=== PATIENT | male | born 1935 | race Caucasian/White ===

== ENCOUNTER 2021-08-24 00:31 | Observation (INO) ==
[2021-08-24] MEDS ORDERED: Ondansetron ODT 4 MG TAB.RAPDIS SL PRN (10:02)
[2021-08-24] MEDS ORDERED: Melatonin 3 MG TABLET PO PRN (10:02)
[2021-08-24] MEDS ORDERED: Naloxone 0.4 MG/ML INJ IVP PRN (10:02)
[2021-08-24] MEDS ORDERED: Acetaminophen 325 MG TABLET PO PRN (10:02)
[2021-08-24] MEDS ORDERED: Nitroglycerin 0.4 MG TAB.SUBL SL PRN (13:53)
[2021-08-24] MEDS ORDERED: *HR* Labetalol 20 MG/4 ML SYRINGE IVP PRN (13:55)
[2021-08-24] MEDS ORDERED: Perflutren Lipid Microsphere 1.3 ML in 0.9 % Sodium Chloride 8.7 ML IVP PRN (14:12)
[2021-08-24 17:09] LABS: Hematocrit 38.9 % (37.5-50.1); Hemoglobin 13.6 g/dL (12.9-16.9); Immature Granulocytes % 2.7 % (0-4); Lymphocytes # 0.3 K/mcL (0.6-4.6); Lymphocytes % 8.4 %; Mean Corpuscular Volume 88.6 fL (83.0-100.0); Mean Platelet Volume 9.2 fL (9.4-12.4); Monocytes # 0.2 K/mcL (0.0-1.3); Monocytes % 6.7 %; Neutrophils # 2.5 K/mcL (1.6-8.9); Platelet Count 159 K/mcL (140-400); Red Blood Count 4.39 M/mcL (4.19-5.50); Red Cell Distribution Width 11.9 % (11.5-14.5); Segmented Neutrophils % 82.2 %
[2021-08-24 17:24] LABS: BUN/Creatinine Ratio 26 (6-26); Blood Urea Nitrogen 25 mg/dL (8-23); C-Reactive Protein 77 mg/L (Less than 10); Calcium 8.8 mg/dL (8.6-10.3); Carbon Dioxide 24 mEq/L (23-29); Chloride 94 mEq/L (98-107); Glucose 212 mg/dL (70-105); Osmolality,Calculated 279 (280-300); Potassium 3.7 mEq/L (3.5-5.1); Sodium 129 mEq/L (136-145); Troponin I 0.03 ng/mL (< 0.04); eGFR For African Americans > 60 (> 60); eGFR For Non-African Americans > 60 (> 60)
[2021-08-24] MEDS ORDERED: *HR* Enoxaparin 60 MG/0.6 ML SYRINGE SQ SCH (18:00)
[2021-08-24] MEDS ORDERED: Enoxaparin Weight Dosing SQ SCH (18:00)
[2021-08-24] MEDS ORDERED: Aspirin Enteric Coated 81 MG Tablet PO SCH (21:00)
[2021-08-25] MEDS ORDERED: *HR* Enoxaparin 40 MG/0.4 ML SYRINGE SQ SCH (06:00)
[2021-08-25 06:04] LABS: BUN/Creatinine Ratio 31 (6-26); Blood Urea Nitrogen 27 mg/dL (8-23); Calcium 8.4 mg/dL (8.6-10.3); Carbon Dioxide 26 mEq/L (23-29); Chloride 94 mEq/L (98-107); Glucose 144 mg/dL (70-105); Osmolality,Calculated 272 (280-300); Potassium 3.9 mEq/L (3.5-5.1); Sodium 127 mEq/L (136-145); eGFR For African Americans > 60 (> 60); eGFR For Non-African Americans > 60 (> 60)
[2021-08-25 06:43] LABS: Basophils % 0.2 %; Hematocrit 36.1 % (37.5-50.1); Hemoglobin 12.5 g/dL (12.9-16.9); Immature Granulocytes % 1.2 % (0-4); Immature Platelets 2.9 % (1.1-6.1); Lymphocytes % 5.7 %; Mean Corpuscular HGB Conc 34.6 g/dL (31.6-35.5); Mean Corpuscular Hemoglobin 30.3 pg (28.0-33.3); Mean Corpuscular Volume 87.4 fL (83.0-100.0); Mean Platelet Volume 9.5 fL (9.4-12.4); Monocytes % 6.3 %; Platelet Count 154 K/mcL (140-400); Red Blood Count 4.13 M/mcL (4.19-5.50); Red Cell Distribution Width 11.9 % (11.5-14.5); Segmented Neutrophils % 86.6 %; White Blood Count 4.9 K/mcL (4.3-11.1)
[2021-08-25 06:44] LABS: Lymphocytes # 0.3 K/mcL (0.6-4.6); Monocytes # 0.3 K/mcL (0.0-1.3)
[2021-08-25 06:45] LABS: Neutrophils # 4.2 K/mcL (1.6-8.9)
[2021-08-25 07:56] VITALS: BP 147/70; PULSE 81; TEMP 98.2
[2021-08-25] MEDS: Ipratropium 1 PUFF INHALER IH SCH ×2 (08:32→11:21)
[2021-08-25] MEDS ORDERED: Zinc Sulfate 220 MG CAPSULE PO SCH (09:00)
[2021-08-25 11:51] VITALS: O2SAT 91
== END 2021-08-25 12:42 | disposition home or self-care (01) ==
LOC: 3BNU 09:05 → INTOOBSV 09:05 → SUATTDRO 09:05
PROVIDERS: ADMIT Internal Medicine; ATTEND Family Medicine